=== PATIENT | female | born 1995 | race Caucasian/White ===

== ENCOUNTER 2021-11-22 17:42 | Inpatient (IN) | payer OTHER ==
[~2021-11-22] VITALS: Ht 165.1 cm; Wt 104.5 kg
[2021-11-22] MEDS ORDERED: SODIUM CHLORIDE 0.9% 500 ML IV ONE (19:45)
[2021-11-22 19:54] LABS: BASOPHILS % (AUTO) 0.6 % (0.0-2.0); EOSINOPHILS % (AUTO) 1.1 % (1.0-6.0); HEMOGLOBIN 9.1 g/dL (12.0-16.0); LYMPHOCYTES # (AUTO) 1.9 K/uL (1.0-4.8); LYMPHOCYTES % (AUTO) 29.4 % (22.0-44.0); MEAN CORPUSCULAR HEMOGLOBIN 22.8 pg (26.0-34.0); MEAN CORPUSCULAR HGB CONC 31.5 G/dL (31.0-37.0); MEAN CORPUSCULAR VOLUME 72 fL (80-100); MONOCYTES # (AUTO) 0.3 K/uL (0.1-1.0); MONOCYTES % (AUTO) 4.8 % (2.0-9.0); NEUTROPHILS # (AUTO) 4.2 K/uL (1.8-7.7); NEUTROPHILS % (AUTO) 64.1 % (40.0-70.0); PLATELET COUNT (AUTO) 344 K/uL (150-450); RED BLOOD CELL COUNT(AUTO) 4.01 MIL/uL (4.00-5.20); RED CELL DISTRIBUTION WIDTH 21.3 % (11.5-14.5)
[2021-11-22 20:02] LABS: ANION GAP 12 mmol/L (8-16); CALCIUM, TOTAL 8.7 mg/dL (8.8-10.5); CARBON DIOXIDE 23 mmol/L (22-29); CHLORIDE 105 mmol/L (98-107); CREATININE 0.67 mg/dL (0.60-1.30); GLUCOSE,RANDOM 98 mg/dL (70-110); POTASSIUM 3.7 mmol/L (3.5-5.1); SODIUM SERUM 140 mmol/L (136-145); UREA NITROGEN, BLOOD 15 mg/dL (7-18)
[2021-11-22 20:03] LABS: GLOMERULAR FILTR. RATE CALC > 60 mL/min (>60)
[2021-11-22 20:08] LABS: ALANINE AMINOTRANSFERASE 25 U/L (12-78); ALBUMIN 3.6 g/dL (3.4-5.0); ALKALINE PHOSPHATASE 67 U/L (46-116); ASPARTATE AMINOTRANSFERASE 11 U/L (15-37); BILIRUBIN,TOTAL 0.6 mg/dL (0.1-1.0); TOTAL PROTEIN, SERUM 7.6 g/dL (6.4-8.2)
[2021-11-22 20:38] LABS: APPEARANCE,URINE HAZY (CLEAR); BILIRUBIN,URINE NEGATIVE (NEGATIVE); GLUCOSE, URINE (UA) NEGATIVE (NEGATIVE); KETONES,URINE NEGATIVE (NEGATIVE); LEUKOCYTE ESTERASE ,URINE MODERATE (NEGATIVE); NITRATE,URINE NEGATIVE (NEGATIVE); OCCULT BLOOD,URINE LARGE (NEGATIVE); PROTEIN,URINE 30-70 mg/dL (NEGATIVE); SPECIFIC GRAVITIY, URINE 1.026 (1.003-1.030); UROBILINOGEN,URINE <=1.0 mg/dL (<=1.0)
[2021-11-22 20:43] LABS: AMPHET/METH SCREEN,URINE NEGATIVE (NEGATIVE); BARBITURATE SCREEN, URINE NEGATIVE (NEGATIVE); BENZODIAZEPINES SCREEN,URINE NEGATIVE (NEGATIVE); CANNABINOID SCREEN,URINE NEGATIVE (NEGATIVE); COCAINE SCREEN,URINE NEGATIVE (NEGATIVE); METHADONE SCREEN, URINE NEGATIVE (NEGATIVE); OPIATE SCREEN,URINE NEGATIVE (NEGATIVE)
[2021-11-22 20:44] LABS: PHENCYCLIDINE SCREEN,URINE NEGATIVE (NEGATIVE)
[2021-11-22 20:47] LABS: BACTERIA,URINE Moderate /HPF (None Seen)
[2021-11-22] MEDS ORDERED: CEPHALEXIN MONOHYDRATE 500 MG CAPSULE PO ONE (21:30)
[2021-11-22] MEDS ORDERED: ONDANSETRON HCL 4 MG/2 ML VIAL IVP PRN (22:15)
[2021-11-22 22:42] LABS: THYROID STIMULATING HORMONE 1.28 uIU/mL (0.36-3.74)
[2021-11-22 23:43] LABS: COVID AG,FIA SOURCE NASOPHARYNGEAL
[2021-11-23 00:06] LABS: INFLUENZA TYPE A NEGATIVE FOR TYPE A (NEGATIVE); INFLUENZA TYPE B NEGATIVE FOR TYPE B (NEGATIVE)
[2021-11-23] MEDS: RINGERS SOLUTION,LACTATED 1,000 ML IV SCH ×3 (00:34→17:53)
[2021-11-23] MEDS: ACETAMINOPHEN 325 MG TABLET PO PRN ×3 (00:50→17:55)
[2021-11-23 01:15] VITALS: BP 109/61
[2021-11-23 05:08] VITALS: BP 113/66
[2021-11-23] MEDS: CefTRIAXone 1 GM/DEXTROSE 50 ML IV SCH (05:41)
[2021-11-23 06:03] LABS: BASOPHILS % (AUTO) 0.7 % (0.0-2.0); EOSINOPHILS % (AUTO) 1.8 % (1.0-6.0); HEMATOCRIT 25.6 % (36-46); HEMOGLOBIN 8.1 g/dL (12.0-16.0); LYMPHOCYTES # (AUTO) 1.9 K/uL (1.0-4.8); LYMPHOCYTES % (AUTO) 40.6 % (22.0-44.0); MEAN CORPUSCULAR HEMOGLOBIN 22.8 pg (26.0-34.0); MEAN CORPUSCULAR HGB CONC 31.7 G/dL (31.0-37.0); MEAN CORPUSCULAR VOLUME 72 fL (80-100); MONOCYTES # (AUTO) 0.5 K/uL (0.1-1.0); NEUTROPHILS # (AUTO) 2.2 K/uL (1.8-7.7); NEUTROPHILS % (AUTO) 46.9 % (40.0-70.0); PLATELET COUNT (AUTO) 294 K/uL (150-450); RED BLOOD CELL COUNT(AUTO) 3.57 MIL/uL (4.00-5.20)
[2021-11-23 06:11] LABS: ANION GAP 8 mmol/L (8-16); CALCIUM, TOTAL 8.2 mg/dL (8.8-10.5); CARBON DIOXIDE 24 mmol/L (22-29); CHLORIDE 105 mmol/L (98-107); CREATININE 0.56 mg/dL (0.60-1.30); GLUCOSE,RANDOM 87 mg/dL (70-110); POTASSIUM 3.4 mmol/L (3.5-5.1); SODIUM SERUM 137 mmol/L (136-145); UREA NITROGEN, BLOOD 13 mg/dL (7-18)
[2021-11-23 06:16] LABS: GLOMERULAR FILTR. RATE CALC > 60 mL/min (>60)
[2021-11-23] MEDS ORDERED: LEVE500T8 PO (07:02)
[2021-11-23] MEDS ORDERED: MULT-660 PO (07:02)
[2021-11-23] MEDS ORDERED: FERR-82 PO (07:02)
[2021-11-23] MEDS ORDERED: PROV5 PO (07:02)
[2021-11-23 07:42] VITALS: BP 101/71
[2021-11-23] MEDS: FERROUS SULFATE 325 MG EC TABLET PO SCH ×3 (08:56→21:19)
[2021-11-23] MEDS: LevETIRAcetam 500 MG TABLET PO SCH ×2 (08:56→21:19)
[2021-11-23] MEDS: MULTIVITAMINS, THERAPEUTIC TABLET PO SCH (08:56)
[2021-11-23] MEDS: MedroxyPROGESTERone ACET 5 MG TABLET PO SCH ×3 (08:57→21:20)
[2021-11-23] MEDS ORDERED: [UNRECOGNIZED DRUG - OTHER] PO SCH (09:00)
[2021-11-23] MEDS ORDERED: FERR325T27 PO (11:08)
[2021-11-23 15:25] VITALS: BP 114/72
[2021-11-23 20:23] VITALS: BP 102/57
[2021-11-24 04:16] VITALS: BP 94/48
[2021-11-24 05:06] VITALS: BP 110/51
[2021-11-24] MEDS: CefTRIAXone 1 GM/DEXTROSE 50 ML IV SCH (05:06)
[2021-11-24] MEDS: RINGERS SOLUTION,LACTATED 1,000 ML IV SCH (05:06)
[2021-11-24 07:53] VITALS: BP 105/52
[2021-11-24] MEDS: MULTIVITAMINS, THERAPEUTIC TABLET PO SCH (08:04)
[2021-11-24] MEDS: MedroxyPROGESTERone ACET 5 MG TABLET PO SCH ×3 (08:04→21:05)
[2021-11-24] MEDS: FERROUS SULFATE 325 MG EC TABLET PO SCH ×3 (08:04→17:13)
[2021-11-24] MEDS: LevETIRAcetam 500 MG TABLET PO SCH ×2 (08:04→21:05)
[2021-11-24] MEDS ORDERED: SODIUM CHLORIDE 0.9% 500 ML IV ONE (12:15)
[2021-11-24] MEDS ORDERED: POTASSIUM CHLORIDE 20 MEQ ER TABLET PO PRN (12:15)
[2021-11-24] MEDS ORDERED: POTASSIUM CHL 10 MEQ/WATER 50 ML IV PRN (12:15)
[2021-11-24 15:12] VITALS: BP 111/56
[2021-11-24 15:41] LABS: BASOPHILS % (AUTO) 0.4 % (0.0-2.0); EOSINOPHILS % (AUTO) 1.6 % (1.0-6.0); HEMATOCRIT 29.8 % (36-46); HEMOGLOBIN 9.1 g/dL (12.0-16.0); LYMPHOCYTES # (AUTO) 1.9 K/uL (1.0-4.8); LYMPHOCYTES % (AUTO) 30.1 % (22.0-44.0); MEAN CORPUSCULAR HEMOGLOBIN 22.1 pg (26.0-34.0); MEAN CORPUSCULAR HGB CONC 30.7 G/dL (31.0-37.0); MEAN CORPUSCULAR VOLUME 72 fL (80-100); MONOCYTES # (AUTO) 0.4 K/uL (0.1-1.0); NEUTROPHILS # (AUTO) 3.8 K/uL (1.8-7.7); NEUTROPHILS % (AUTO) 60.9 % (40.0-70.0); PLATELET COUNT (AUTO) 327 K/uL (150-450); RED BLOOD CELL COUNT(AUTO) 4.14 MIL/uL (4.00-5.20)
[2021-11-24 15:53] LABS: ANION GAP 9 mmol/L (8-16); CALCIUM, TOTAL 8.7 mg/dL (8.8-10.5); CARBON DIOXIDE 25 mmol/L (22-29); CHLORIDE 106 mmol/L (98-107); CREATININE 0.68 mg/dL (0.60-1.30); GLUCOSE,RANDOM 101 mg/dL (70-110); POTASSIUM 3.9 mmol/L (3.5-5.1); SODIUM SERUM 140 mmol/L (136-145); UREA NITROGEN, BLOOD 10 mg/dL (7-18)
[2021-11-24 15:58] LABS: GLOMERULAR FILTR. RATE CALC > 60 mL/min (>60)
[2021-11-24 19:29] VITALS: BP 104/70
[2021-11-24] MEDS: ACETAMINOPHEN 325 MG TABLET PO PRN (23:52)
[2021-11-25 04:00] VITALS: BP 104/64
[2021-11-25] MEDS: CefTRIAXone 1 GM/DEXTROSE 50 ML IV SCH (06:10)
[2021-11-25] MEDS ORDERED: CEPH-558 PO (07:26)
[2021-11-25 07:40] VITALS: BP 105/51
[2021-11-25] MEDS: MULTIVITAMINS, THERAPEUTIC TABLET PO SCH (08:21)
[2021-11-25] MEDS: FERROUS SULFATE 325 MG EC TABLET PO SCH (08:21)
[2021-11-25] MEDS: MedroxyPROGESTERone ACET 5 MG TABLET PO SCH (08:21)
[2021-11-25] MEDS: LevETIRAcetam 500 MG TABLET PO SCH (08:21)
== END 2021-11-25 09:45 | DRG 690 ==
LOC: EMS 17:45 → 6S 23:12
PROVIDERS: ADMIT Internal Medicine; ATTEND Internal Medicine
DX: N30.00 Acute cystitis without hematuria (principal); D64.9 Anemia, unspecified; E66.9 Obesity, unspecified; E86.0 Dehydration; E87.6 Hypokalemia; J45.909 Unspecified asthma, uncomplicated; Z20.822 Contact with and (suspected) exposure to COVID-19; I95.9 Hypotension, unspecified; Z79.899 Other long term (current) drug therapy; Z68.38 Body mass index [BMI] 38.0-38.9, adult; Z90.49 Acquired absence of other specified parts of digestive tract; Z88.0 Allergy status to penicillin; Z91.013 Allergy to seafood
CPT/HCPCS: 80048; 80053; 81001; 82271; 83735; 84443; 84703; 85025; 87086; 87804; 99285; G0482; J0696; J7040; J7120